=== PATIENT | female | born 1975 | race Caucasian/White ===

== ENCOUNTER 2024-06-18 13:42 | Emergency (ER) | payer SELFPAY ==
[2024-06-18 13:46] VITALS: BP 179/106
--- NOTE | 2024-06-18 15:20 | ED.GENMED ---
History of Present Illness
General
Chief Complaint: Head Injury
Source: patient
Exam Limitations: none
Time Seen by Provider: 06/18/24 14:25
History of Present Illness
History of Present Illness:
49yoF with a history of hypertension presenting for evaluation of a forehead laceration. Patient was walking her [place] about 2 hours ago when her dog yanked the leash causing her to fall forward. She struck her forehead against a piece of
metal causing a laceration. There was no loss of consciousness. Patient went to urgent care but was told they do not repair facial lacerations and was advised to go to the ED. She complains of a headache and photophobia. No dizziness, vomiting,
neck pain. She does not take any blood thinners. Last Tdap 3-4 years ago.
Phy Exam
Physical Exam
Physical Exam:
Sitting on stretcher with eyes closed
General Physical Exam
General Presentation: well appearing and no apparent distress
General age: appears stated age
General Skin: warm and dry
General Habitus: normal
General Mental: alert
ENT Exam
ENT Exam: other (Approx 6cm jagged mildly gaping laceration on forehead with some venous oozing. No surrounding hematoma. No FB.)
Additional ENT: No cervical spine tenderness.
Eye Exam
Eye Exam: PERRL
Neurological Exam
Neurological Exam: alert and other (Ambulating with a steady gait)
Whit Coma Scale
Eye Opening: Spontaneous
Verbal Response: Oriented
Motor Response: Obeys Commands
GCS Total Score: 15
Skin Exam
Skin Exam: normal color and warm/dry
Psychiatric Exam
Psychiatric Exam: normal mood/affect
Course
Orders/Labs/Results
Orders:
Orders
06/18/24 14:30
CT Head W/o Iv Contrast Urgent
Comment:
Reason For Exam: head injury
Vital Signs
Initial and Last Documented VS:
Initial Vital Signs
Temp Pulse Resp BP Pulse Ox
98.2 F 120 16 179/106 98
06/18/24 13:46 06/18/24 13:46 06/18/24 13:46 06/18/24 13:46 06/18/24 13:46
Last Documented Vital Signs
Temp Pulse Resp BP Pulse Ox
98.2 F 104 16 164/82 98
06/18/24 13:46 06/18/24 15:36 06/18/24 16:17 06/18/24 15:36 06/18/24 15:36
Procedures
Laceration Closure
Forehead:
Status of Wound: clean
Size of Wound in cm: 6
Description of Wound Edges: ragged
Preparation: cleaned with saline
Anesthesia: 1% Lidocaine with epi
Wound exploration: explored to base- no FB
Type of Closure: single layer closure
Skin Closure Material: 6-0 nylon
Number of sutures: 7
MDM/Problems Addressed
Differential Diagnosis Includes:
49yoF here with a forehead laceration. Her dog pulled the leash causing her to fall and strike her head. No LOC. C/o headache and photophobia. She is hypertensive on arrival. There is a jagged 6cm laceration present to the forehead. No cervical
spine tenderness noted. Differential diagnosis includes but is not limited to: laceration, concussion, intracranial hemorrhage, fracture
Laceration repaired as above. Head CT is negative for acute intracranial abnormality. She is stable for discharge. Home wound care discussed. Advised f/u with PCP and ED return precautions discussed. Patient discharged in stable condition.
*Critical Care Note
Total Time (30-74mins, 75-104mins- exclusive of procedures): Not Applicable
ED Attending Note
-
Portions of this chart may have been created with voice recognition software.� Occasional wrong word or��sound alike� substitutions may have occurred due to the inherent limitations of voice recognition software.
Discharge Plan
Departure
Patient Disposition: Home (Routine Discharge)
Date of Disposition: 06/18/24
Time of Disposition: 16:09
Patient with high blood pressure during this ER visit?: Yes
Discharge Problem:
Laceration of forehead
Instructions: Head Injury in Adults (DC), Laceration Repair With Stitches (DC)
Referrals:
[facility] [Provider Group]
NONE,* [Family Provider] -
Activity Restrictions/Additional Instructions:
Keep wound clean and dry. Sutures need to be removed in 5 days.
Please follow-up with your family doctor. Return to the ER with any signs of infection or worsening symptoms.
Interventions
Interventions:
*Risk Screen - Suicide Last Done: 06/18/24 13:46
*General Assessment Last Done: 06/18/24 16:06
*Neglect/Abuse Screening Last Done: 06/18/24 13:46
*ED- Fall Risk Assessment Last Done: 06/18/24 16:06
*Nursing Disposition Last Done: 06/18/24 16:17
ED- Neurological Assessment Last Done: 06/18/24 14:43
ED-Skin Assessment Last Done: 06/18/24 14:43
Discharge Date and Time
Discharge Date/Time: 06/18/24 16:18
Print Language: [id number]
[2024-06-18 15:36] VITALS: BP 164/82
== END 2024-06-18 16:18 | disposition home or self-care (01) ==
LOC: EMR 13:42
PROVIDERS: EMERGENCY PHYSICIAN Emergency Medicine
DX: S01.81XA Laceration without foreign body of other part of head, initial encounter (principal); W01.118A Fall on same level from slipping, tripping and stumbling with subsequent striking against other sharp object, initial encounter; I10 Essential (primary) hypertension
CPT/HCPCS: 99284; 12014; 70450